=== PATIENT | female | born 1980 | race Caucasian/White ===

== ENCOUNTER 2018-06-19 07:35 | Day surgery (SDC) | payer OTHER ==
[2018-06-19] MEDS: BUPIVACAINE 0.25% (MPF) 30 ML INJ (07:29)
[~2018-06-19 07:35] MED LIST: CEFAZOLIN 1 GM INJ
[2018-06-19] MEDS ORDERED: CEFAZOLIN 2 GM/50 ML (PMX) 50 ML IVPB (08:00)
[2018-06-19] MEDS ORDERED: LIDOCAINE 2% (SDV) 5 ML INJ (11:11)
[2018-06-19] MEDS ORDERED: MIDAZOLAM 1 MG/ML 2 ML INJ (11:11)
[2018-06-19] MEDS ORDERED: ROCURONIUM 50 MG INJ (11:11)
[2018-06-19] MEDS ORDERED: PROPOFOL 20 ML (11:11)
[2018-06-19] MEDS ORDERED: ROPIVACAINE 0.5 % 30 ML VIAL (11:19)
[2018-06-19] MEDS ORDERED: DEXAMETHASONE 4 MG/ML 1 ML INJ (11:48)
[2018-06-19] MEDS ORDERED: FAMOTIDINE 20 MG INJ (11:48)
[2018-06-19] MEDS ORDERED: ONDANSETRON 4 MG INJ (11:48)
[2018-06-19] MEDS ORDERED: NEOSTIGMINE 3 MG/3 ML SYRINGE (12:07)
[2018-06-19] MEDS ORDERED: GLYCOPYRROLATE 1 MG INJ (12:07)
[2018-06-19] MEDS: HYDROCODONE/APAP (5/325) TAB PO (12:57)
[2018-06-19] MEDS: SOD CHLORIDE 0.9% 1,000 ML IV (13:00)
[2018-06-19] MEDS: ACETAMINOPHEN 1000MG/100ML IV 100 ML IVPB (13:55)
== END 2018-06-19 15:08 | disposition home or self-care (01) ==
LOC: SDS 07:35
DX: K80.10 Calculus of gallbladder with chronic cholecystitis without obstruction (principal)
CPT/HCPCS: 47562; 88304